=== PATIENT | male | born 1980 | race Hispanic/Latino ===

== ENCOUNTER 2019-06-01 13:16 | Emergency (ER) | payer SELFPAY ==
[~2019-06-01 13:16] MED LIST: ISOVUE-370 76%-LOCM 1 ML ONE
[2019-06-01 14:45] LABS: Hemoglobin 16.6 g/dL (14.0-18.0); Mean Corpuscular HGB CONC 33.1 g/dL (32.0-36.0); Mean Corpuscular Hemoglobin 30.6 pg (27.0-31.0); Mean Corpuscular Volume 92.4 fL (78.0-98.0); Mean Platelet Volume 7.8 fL (7.4-10.4); Platelet Count 213 thou/uL (130-400); RBC Distribution Width 11.8 % (11.5-14.5); Red Blood Cell (RBC) Count 5.42 mill/uL (4.70-6.10); White Blood Cell (WBC) Count 4.8 thou/uL (4.8-10.8)
[2019-06-01 14:59] LABS: Band 10 % (5-11); Eosinophils 2 % (0-10); Lymphocytes 31 % (21-51); MDiff Complete? YES; Monocytes 8 % (0-10); Neutrophil 45 % (42-75); Platelet Morphology Comment Appears Adequate; RBC Morphology Normal; Reactive Lymphocytes 3 % (0-10)
[2019-06-01] MEDS ORDERED: Ondansetron ODT 4 MG TAB ONE (15:05)
[2019-06-01] MEDS ORDERED: Acetaminophen 500 MG TAB ONE (15:05)
[2019-06-01 15:18] LABS: ALT (SGPT) 14 U/L (8-55); AST (SGOT) 14 U/L (5-34); Alkaline Phosphatase 51 U/L (40-150); BUN (Urea Nitrogen) 9 mg/dL (8.9-20.6); Bilirubin, Total 0.4 mg/dL (0.2-1.2); Calc. Creatinine Clearance 0 mL/min (70-130); Calcium 9.4 mg/dL (7.8-10.44); Carbon Dioxide 26 mmol/L (22-29); Chloride 104 mmol/L (98-107); Estimated GFR-MDRD 80; Glucose 96 mg/dL (70-105); Lipase 25 U/L (8-78); Potassium 4.2 mmol/L (3.5-5.1); Sodium 137 mmol/L (136-145)
[2019-06-01 15:27] LABS: Anion Gap 13 mmol/L (10-20)
[2019-06-01 16:14] LABS: Bacteria/HPF None Seen HPF (None Seen); Bilirubin Negative (Negative); Blood, Urine Trace (Negative); Clarity Clear (Clear); Glucose, Urine (Dipstick) Normal (Negative); Leukocyte Negative Leu/uL (Negative); Nitrite Negative (Negative); Protein, Urine (Dipstick) Negative (Neg-Trace); Squamous Epithelial 0-3 HPF (0-3); Urobilinogen Normal mg/dL (Less than 2); WBC/HPF 0-3 HPF (0-3)
--- NOTE | 2019-06-01 17:22 | CT ---
CT ABDOMEN AND PELVIS WITH IV CONTRAST: Date: 06/01/19 HISTORY: Left lower quadrant abdominal pain which has progressively worsened over the last week. COMPARISON: 01/28/07. FINDINGS: Lung bases are clear. There is a punctate calcification seen in the gallbladder lumen suggesting cholelithiasis. Gallbladde r is decompressed. The liver, spleen, pancreas, bilateral adrenal glands, kidneys, and abdominal aorta demonstrate a nor mal CT appearance. The urinary bladder is decompressed and not well evaluated. The small bowel loops are normal in caliber. The appendix is visualized and normal in caliber. There is no free fluid, fluid collection, or lymphadenopathy seen in the abdomen or pelvis. The stoma ch is distended with fluid and particulate matter likely related to recent ingestion of a meal. Osseous structures have a normal appearance. IMPRESSION: No acute findings in the abdomen or pelvis. POS: [facility]
== END 2019-06-01 16:50 | disposition home or self-care (01) ==
LOC: ERS 13:16
DX: R10.32 Left lower quadrant pain (principal); R31.9 Hematuria, unspecified; F17.220 Nicotine dependence, chewing tobacco, uncomplicated
CPT/HCPCS: 36415; 74177; 80053; 81003; 81015; 83690; 85025; Q0162; Q9966

== ENCOUNTER 2019-07-27 07:41 | Outpatient (CLI) | payer OTHER ==
--- NOTE | 2019-07-27 08:53 | ULT ---
Sonogram abdomen complete HISTORY: Left abdominal pain. FINDINGS: Small amount of nonshadowing echogenic sludge is present within the dependent portion of th e gallbladder lumen. In addition, there are multiple nonshadowing echogenic foci attached to the wall along the entire the of the inner lumen of the gallbladder. The largest suspected polyps measure up to 0.7 cm diameter. No diffuse wall thickening or pericholecystic fluid. Common duct is 0.2 cm. Liver has normal appearance. No free fluid. The spleen, kidneys, and visualized portions of abdominal aorta, IVC, and pancreas are unremarkable. IMPRESSION: Multiple, diffusely prominent gallbladder wall polyps. Biliary sludge is consistent with chronic gallbladder dyskinesis. No evidence of acute biliary obstru ction.
== END 2019-07-27 07:42 | disposition home or self-care (01) ==
LOC: ULT 07:41
PROVIDERS: ATTEND Nurse Practitioner Family
DX: R10.32 Left lower quadrant pain (principal); K57.92 Diverticulitis of intestine, part unspecified, without perforation or abscess without bleeding; D41.4 Neoplasm of uncertain behavior of bladder; K83.9 Disease of biliary tract, unspecified
CPT/HCPCS: 76700